=== PATIENT | female | born 1985 | race Caucasian/White ===

== ENCOUNTER 2023-05-18 12:28 | Emergency (ER) | payer OTHER ==
[~2023-05-18] VITALS: Ht 175.3 cm; Wt 106.6 kg
== END 2023-05-18 16:16 | disposition home or self-care (01) ==
LOC: ER 12:28
DX: S50.01XA Contusion of right elbow, initial encounter (principal); S70.01XA Contusion of right hip, initial encounter; V00.831A Fall from motorized mobility scooter, initial encounter; Y93.9 Activity, unspecified; Y92.9 Unspecified place or not applicable; Y99.9 Unspecified external cause status